=== PATIENT | female | born 1970 | race Asian ===

== ENCOUNTER 2018-08-29 20:58 | Emergency (ER) | payer BC ==
[~2018-08-29] VITALS: Ht 149.9 cm; Wt 69.1 kg
[2018-08-29] MEDS ORDERED: UNKNOWN MED (21:22)
[2018-08-30] MEDS ORDERED: BACTRIM 160MG/800MG DS TAB PO ONE (00:45)
[2018-08-30] MEDS ORDERED: BACT800T5 PO (00:45)
[2018-08-30] MEDS ORDERED: AMIT50TA PO (00:53)
[2018-08-30] MEDS ORDERED: LISI10TA4 PO (00:53)
[2018-08-30] MEDS ORDERED: ATOR1TAB21 PO (00:53)
[2018-08-30 01:03] VITALS: BP 137/80
== END 2018-08-30 01:04 | disposition home or self-care (01) ==
LOC: EDSEX 20:58 → M ED 20:58
DX: L03.012 Cellulitis of left finger (principal); Z79.899 Other long term (current) drug therapy